=== PATIENT | female | born 1940 | race Caucasian/White ===

== ENCOUNTER 2019-04-18 05:38 | Day surgery (SDC) | payer MEDICARE, OTHER ==
[2019-04-16 12:50] LABS: BASOPHILS % (AUTO) 0.4 % (0-1); EOSINOPHILS # (AUTO) 0.2 X10'3 (0-0.9); EOSINOPHILS % (AUTO) 3.7 % (0-6); HEMATOCRIT 43.7 % (35.0-45.0); HEMOGLOBIN 14.3 g/dl (12.0-16.0); LYMPHOCYTES # (AUTO) 1.3 X10'3 (1.1-4.8); MEAN CORPUSCULAR HEMOGLOBIN 28.6 PG (27.0-31.0); MEAN CORPUSCULAR HGB CONC 32.8 g/dL (33.0-36.5); MEAN CORPUSCULAR VOLUME 87.2 FL (78-98); MEAN PLATELET VOLUME 8.4 FL (7.4-10.4); MONOCYTES # (AUTO) 0.5 X10'3 (0-0.9); MONOCYTES % (AUTO) 8.1 % (2-12); NEUTROPHILS % (AUTO) 66.8 % (42-75); PLATELET COUNT 345 X10'3 (140-440); RED BLOOD COUNT 5.02 X10'6 (4.20-5.60); RED CELL DISTRIBUTION WIDTH 16.3 % (11.5-14.5)
[2019-04-16 13:01] LABS: PARTIAL THROMBOPLASTIN TIME 31 SECONDS (22-32)
[2019-04-16 13:08] LABS: ALANINE AMINOTRANSFERASE 20 U/L (12-78); ALBUMIN 3.9 G/DL (3.4-5.0); ALKALINE PHOSPHATASE 78 IU/L (46-116); ANION GAP 10 (8-16); ASPARTATE AMINO TRANSFERASE 15 U/L (10-37); BILIRUBIN,TOTAL 0.4 MG/DL (0.1-1.0); BLOOD UREA NITROGEN 20 MG/DL (7-18); BUN/CREATININE RATIO 22.2 (6.6-38.0); CALCIUM 9.5 MG/DL (8.5-10.1); CHLORIDE 106 MMOL/L (99-107); GLUCOSE 102 MG/DL (70-104); POTASSIUM 3.9 MMOL/L (3.5-5.1); SODIUM 144 MMOL/L (135-145); TOTAL CARBON DIOXIDE 28.2 MMOL/L (24-32); TOTAL PROTEIN 7.9 G/DL (6.4-8.2); eGFR 61 ML/MIN
[~2019-04-18] VITALS: Ht 157.5 cm; Wt 66.5 kg
[2019-04-18] VITALS (15 sets, daily range): BP systolic 75–153; BP diastolic 46–84
[2019-04-18] MEDS ORDERED: diphenhydrAMINE 25mg capsule PO PRN (06:15)
[2019-04-18] MEDS ORDERED: nitroGLYCERIN 0.4mg SUBLingual tab SL PRN (06:15)
[2019-04-18] MEDS ORDERED: LORazepam 0.5 MG tablet PO PRN (06:15)
[2019-04-18] MEDS ORDERED: CALC-336 PO (06:35)
[2019-04-18] MEDS ORDERED: AMLO10TA PO (06:35)
[2019-04-18] MEDS ORDERED: ASPI-611 PO (06:35)
[2019-04-18] MEDS ORDERED: CLOP75TA33 PO (06:35)
[2019-04-18] MEDS ORDERED: LOVA20TA2 PO (06:35)
[2019-04-18] MEDS ORDERED: midazolam 2 mg/2 ml injection ONE (07:52)
[2019-04-18] MEDS ORDERED: iohexol 350MG/ML 100ml bottle IV ONE (07:52)
[2019-04-18] MEDS ORDERED: fentaNYL/PF 50MCG/1 ML 2ML syringe ONE (07:52)
[2019-04-18] MEDS ORDERED: heparin 1,000 UNITS/NS 500ml 500 ML ONE (07:52)
[2019-04-18] MEDS ORDERED: iohexol 350 MG/ML 50ML vial IV ONE ×2 (07:52→09:27)
[2019-04-18] MEDS ORDERED: LIDOcaine 1% (10mg/ml)w/preservative injection 20ml MDV ONE (07:52)
[2019-04-18] MEDS: normal saline 1,000 ML IV SCH ×2 (07:59→12:05)
[2019-04-18] MEDS ORDERED: pneumococcal 23-VAL P-sac vacc 25 mcg/0.5ml vial IMVAC ONE (09:00)
[2019-04-18] MEDS ORDERED: HYDROcodone/acetaminophen 5mg/325mg tablet PO PRN (10:05)
[2019-04-18] MEDS ORDERED: ondansetron/PF 4mg/2ml inj IV PRN (10:05)
[2019-04-18] MEDS ORDERED: OXAZEpam 15mg capsule PO PRN (10:05)
[2019-04-18] MEDS ORDERED: HYDROcodone/acetaminophen 10/325mg tab PO PRN (10:05)
[2019-04-18] MEDS ORDERED: proCHLORperazine 10 MG/2 ml inj IV PRN (10:05)
--- NOTE | 2019-04-18 10:40 | NUR ---
administering 250ml NS bolus, vs charted. pt denies sob, denies cp. will continue to monitor
--- NOTE | 2019-04-18 10:55 | NUR ---
administered 250ml bolus per protocol. vs charted. pt tolerated well. will continue to monitor
[2019-05-03] MEDS ORDERED: LOVA40TA2 PO (16:32)
[2019-05-03] MEDS ORDERED: METO25TA6 PO (16:32)
[2019-05-04] MEDS ORDERED: CALC1TAB2 PO (10:20)
== END 2019-04-18 17:30 | disposition home or self-care (01) ==
LOC: SSTAY O 05:38
PROVIDERS: ATTEND Internal Medicine Cardiovascular Disease
DX: R94.39 Abnormal result of other cardiovascular function study (principal); I25.119 Atherosclerotic heart disease of native coronary artery with unspecified angina pectoris; I70.213 Atherosclerosis of native arteries of extremities with intermittent claudication, bilateral legs; I65.22 Occlusion and stenosis of left carotid artery; I77.1 Stricture of artery; I10 Essential (primary) hypertension; E78.5 Hyperlipidemia, unspecified; J44.9 Chronic obstructive pulmonary disease, unspecified; Z79.01 Long term (current) use of anticoagulants; Z86.73 Personal history of transient ischemic attack (TIA), and cerebral infarction without residual deficits
CPT/HCPCS: 36222; 36415; 71046; 75625; 80053; 85025; 85610; 85730; 93005; 93458; 99152; 99153; C1769; J1644; J2001; J2250; J2405; J3010; J7030; Q0163; Q9967; A6258; C1760

== ENCOUNTER 2019-05-07 05:16 | Inpatient (IN) | payer MEDICARE, OTHER ==
[2019-05-03 14:28] LABS: CLARITY,URINE CLEAR (Clear); COLOR,URINE STRAW (Yellow); GLUCOSE, URINE NEGATIVE (Neg); KETONES,URINE NEGATIVE (Neg); LEUKOCYTE ESTERASE ,URINE NEGATIVE (Neg); NITRITES, URINE NEGATIVE (Neg); OCCULT BLOOD,URINE NEGATIVE (Neg); PROTEIN,URINE NEGATIVE (Neg); UROBILINOGEN,URINE 0.2 E.U/dL (0.2-1.0)
[2019-05-03 14:32] LABS: UA COLLECTION TYPE CLN CATCH MIDSTREAM
[2019-05-03 14:51] LABS: ABG BASE EXCESS 1.9 mmol/L (-2.0-3.0); ABG HCO3 26.2 mmol/L (22.0-26.0); ABG OXYGEN SATURATION 94.7 % (95-98); ABG PCO2 (T) 40.1 mmHg (35.0-45.0); ABG PH (T) 7.433 (7.350-7.450); ABG PO2 (T) 70.4 mmHg (83-108); ALLEN'S TEST Positive; FCOHb 0.7 % (0.5-1.5); FMetHb 0.1 % (0.3-1.12); FO2Hb 93.9 % (94-100); TOTAL HEMOGLOBIN 15.6 G/dl (12.0-16.0)
[2019-05-03 15:35] LABS: BASOPHILS # (AUTO) 0.1 X10'3 (0-0.2); BASOPHILS % (AUTO) 0.8 % (0-1); EOSINOPHILS # (AUTO) 0.2 X10'3 (0-0.9); EOSINOPHILS % (AUTO) 3.6 % (0-6); LYMPHOCYTES # (AUTO) 1.2 X10'3 (1.1-4.8); LYMPHOCYTES % (AUTO) 17.9 % (21-51); MEAN CORPUSCULAR HEMOGLOBIN 28.3 PG (27.0-31.0); MEAN CORPUSCULAR HGB CONC 33.1 g/dL (33.0-36.5); MEAN CORPUSCULAR VOLUME 85.5 FL (78-98); MONOCYTES # (AUTO) 0.5 X10'3 (0-0.9); MONOCYTES % (AUTO) 7.3 % (2-12); NEUTROPHILS # (AUTO) 4.7 X10'3 (1.8-7.7); NEUTROPHILS % (AUTO) 70.4 % (42-75); PRE OP HEMATOCRIT 44.5 % (35.0-45.0); PRE OP HEMOGLOBIN 14.7 g/dL (12.0-16.0); PRE OP PLATELET COUNT 324 X10'3 (140-440); RED CELL DISTRIBUTION WIDTH 15.7 % (11.5-14.5)
[2019-05-03 15:48] LABS: PRE OP PROTIME 10.1 SECONDS (9.0-12.0)
[2019-05-03 15:50] LABS: ALKALINE PHOSPHATASE 78 IU/L (46-116); BLOOD UREA NITROGEN 21 MG/DL (7-18); BUN/CREATININE RATIO 24.1 (6.6-38.0); CALCIUM 10.1 MG/DL (8.5-10.1); CHLORIDE 105 MMOL/L (99-107); CREATININE 0.87 MG/DL (0.40-0.90); PRE OP ALT 18 U/L (30-65); PRE OP ANION GAP 9 (8-16); PRE OP AST 16 U/L (10-37); PRE OP BILIRUB, TOTAL 0.4 MG/DL (0.0-1.0); PRE OP GLUCOSE 95 MG/DL (70-104); PRE OP POTASSIUM 4.1 MMOL/L (3.4-5.1); PRE OP SODIUM 143 MMOL/L (135-145); TOTAL CARBON DIOXIDE 29.3 MMOL/L (24-32); eGFR 63 ML/MIN
[2019-05-03 16:06] LABS: HEMOGLOBIN A1C 5.5 % (4.5-6.2)
[~2019-05-07] VITALS: Ht 157.5 cm; Wt 67.8 kg
[2019-05-07] VITALS (13 sets, daily range): BP systolic 96–146; BP diastolic 39–72
[~2019-05-07 05:16] MED LIST: AMLO10TA PO; ASPI-611 PO; CALC1TAB2 PO; CLOP75TA33 PO; LOVA40TA2 PO; METO25TA6 PO; ROPIVAcaine 0.5% (5mg/ml) 30ml vial ONE; ringers solution, lacted 1,000 ML IV SCH
[2019-05-07] MEDS ORDERED: mupirocin 2% nasal ointment 1gm UD NS ONE (05:30)
[2019-05-07] MEDS ORDERED: VANCOMYCIN INJ 1000 MG in NORMAL SALINE 250ml IV.SOLN IV ONE (05:30)
[2019-05-07] MEDS ORDERED: famotidine 20mg tablet PO ONE (05:30)
[2019-05-07] MEDS ORDERED: gabapentin 400mg capsule PO ONE (05:30)
[2019-05-07] MEDS ORDERED: cefazolin/dext.iso 2gm/100 ML IV ONE (05:30)
[2019-05-07] MEDS ORDERED: MALTODEXTRIN/FRUCTOSE 0.68 KCAL/ML LIQUID 296ML BOTTLE PO ONE (05:30)
[2019-05-07] MEDS ORDERED: LORazepam 2 mg/ml vial IV PRN (06:30)
[2019-05-07] MEDS: metoprolol tartrate 25mg tablet PO SCH ×3 (06:33→20:00)
[2019-05-07] MEDS ORDERED: papaverine 30 mg/ml 2ml inj. IA ONE (07:00)
[2019-05-07] MEDS ORDERED: heparin 10,000 units/1 ML INJ IR ONE (07:00)
[2019-05-07] MEDS ORDERED: sevoflurane 250ml liquid IH ONE (07:01)
[2019-05-07] MEDS ORDERED: nitroGLYCERIN in D5W 50mg/250ml (Tridil) infusion IV ONE (07:01)
[2019-05-07] MEDS ORDERED: DOPamine/D5W 400mg/250ml bag IV ONE (07:01)
[2019-05-07] MEDS ORDERED: SUFENTANIL CITRATE 50 MCG/ML 2ml ampule IV ONE (07:01)
[2019-05-07] MEDS ORDERED: INSULIN R 100 UNIT in NS 100ML (1 UNIT/1 ML) BAG IV ONE (07:01)
[2019-05-07] MEDS ORDERED: protamine sulf. 10mg/ml inj. IV ONE (07:01)
[2019-05-07] MEDS ORDERED: aminocaproic acid 250 MG/1 ML inj. ONE ×2 (07:01→08:00)
[2019-05-07] MEDS ORDERED: midazolam 2 mg/2 ml injection ONE ×2 (07:02)
[2019-05-07] MEDS ORDERED: propofol inj 20 ML IV ONE (07:02)
[2019-05-07] MEDS ORDERED: rocuronium 10mg/ml inj IV ONE ×2 (07:07)
[2019-05-07] MEDS ORDERED: sodium bicarbonate (8.4%) 1 mEq/ml syringe ONE (08:00)
[2019-05-07] MEDS ORDERED: calcium chloride 100 MG/1 ML inj IV ONE (08:00)
[2019-05-07] MEDS ORDERED: heparin 10,000 units/1 ML INJ ONE ×2 (08:00)
[2019-05-07] MEDS ORDERED: MAGNESIUM SULFATE 4 MEQ/ML (5gm/10ml) injection ONE (08:00)
[2019-05-07] MEDS ORDERED: methylPREDNISolone sod. succ. 500mg inj ONE (08:00)
[2019-05-07] MEDS ORDERED: albumin (human) 25% 100 ML IV solution IV ONE (08:00)
[2019-05-07] MEDS ORDERED: phenylephrine 10mg/ml inj. ONE (08:00)
[2019-05-07] MEDS ORDERED: LIDOcaine 2% (20 mg/ml) 5ml cardiac syringe ONE (08:00)
[2019-05-07] MEDS ORDERED: heparin 1,000 units/ml 10ml inj ONE (08:00)
[2019-05-07] MEDS ORDERED: papaverine 30 mg/ml 2ml inj. ONE (08:00)
[2019-05-07] MEDS ORDERED: potassium Cl 2 mEq/ml inj IV ONE (08:00)
[2019-05-07 08:40] LABS: ACT @ 1.70 U 247 SEC (193-297); ACT @ 2.84 U 326 SEC (260-420); BASELINE ACT 117 SEC (101-148); PATIENT WEIGHT 68.0k KG
[2019-05-07 09:30] LABS: ABG BASE EXCESS VENOUS 3.3 mmol/L; ABG HCO3 VENOUS 27.8 mmol/L; ABG PO2 VENOUS 54.5 mmHg; CL (ABG) 104 mmol/L (99-107); FCOHb VENOUS 0.3 %; FHHb VENOUS 10.5 %; FMetHb VENOUS 0.6 %; FO2Hb VENOUS 88.6 %; GLUCOSE (ABG) 124 mg/dl (70-104); IONIZED CA (ABG) 1.04 mmol/L (1.03-1.32); K (ABG) 4.6 mmol/L (3.3-5.1); NA (ABG) 135 mmol/L (135-145); TOTAL HEMOGLOBIN 9.7 G/dl (12.0-16.0)
[2019-05-07 10:06] LABS: ABG BASE EXCESS 0.6 mmol/L (-2.0-3.0); ABG HCO3 25.5 mmol/L (22.0-26.0); ABG OXYGEN SATURATION 98.9 % (95-98); ABG PCO2 42.3 mmHg (35.0-45.0); ABG PH 7.398 (7.350-7.450); ABG PO2 269.5 mmHg (60.0-100.0); CL (ABG) 104 mmol/L (99-107); FCOHb 0.2 % (0.5-1.5); FMetHb 0.7 % (0.3-1.12); GLUCOSE (ABG) 158 mg/dl (70-104); IONIZED CA (ABG) 1.09 mmol/L (1.03-1.32); K (ABG) 4.9 mmol/L (3.3-5.1); NA (ABG) 137 mmol/L (135-145); TOTAL HEMOGLOBIN 9.8 G/dl (12.0-16.0)
[2019-05-07 10:45] LABS: ABG BASE EXCESS -0.2 mmol/L (-2.0-3.0); ABG HCO3 23.4 mmol/L (22.0-26.0); ABG PCO2 35.2 mmHg (35.0-45.0); ABG PO2 324.4 mmHg (60.0-100.0); CL (ABG) 101 mmol/L (99-107); GLUCOSE (ABG) 151 mg/dl (70-104); IONIZED CA (ABG) 1.45 mmol/L (1.03-1.32); K (ABG) 4.4 mmol/L (3.3-5.1); NA (ABG) 132 mmol/L (135-145)
[2019-05-07 11:15] LABS: ACTIVATED CLOTTING TIME 90 SEC (101-148)
[2019-05-07] MEDS ORDERED: acetaminophen 1,000mg/100ml IV 100 ML IV ONE (11:45)
[2019-05-07] MEDS ORDERED: nitroGLYCERIN-Tridil 50MG/D5W 250 ML IV PRN (12:01)
[2019-05-07] MEDS ORDERED: niCARDipine-NS 40mg/200ml IVPB 200 ML IV PRN (12:01)
[2019-05-07] MEDS ORDERED: DOPamine 400mg/D5W 250ml 250 ML IV PRN (12:01)
[2019-05-07] MEDS ORDERED: dextrose 50%-water 50ml dispensing syringe IV PRN (12:05)
[2019-05-07] MEDS ORDERED: insulin regular, human inj. 100 UNITS in normal saline 100ml IV soln 100 ML IV SCH ×2 (12:05)
[2019-05-07] MEDS ORDERED: metoclopramide 5 mg/ml inj IV PRN (12:05)
[2019-05-07] MEDS ORDERED: ondansetron/PF 4mg/2ml inj IV PRN (12:05)
[2019-05-07] MEDS ORDERED: pantoprazole 40 MG vial IV ONE (12:05)
[2019-05-07] MEDS ORDERED: magnesium hydroxide 30ml (MOM) UD suspension PO PRN (12:05)
[2019-05-07] MEDS ORDERED: HYDROcodone/acetaminophen 10/325mg tab PO PRN ×2 (12:05)
[2019-05-07] MEDS ORDERED: normal saline 250ml IV soln 250 ML IV PRN (12:05)
[2019-05-07] MEDS ORDERED: Neutra Phos packet PO PRN (12:05)
[2019-05-07] MEDS ORDERED: potassium Cl 20 mEq SR tablet PO PRN (12:05)
[2019-05-07] MEDS ORDERED: morphine 4 MG/ML inj SYRINge IV PRN ×2 (12:05)
[2019-05-07] MEDS ORDERED: acetaminophen 325mg tablet PO PRN (12:05)
[2019-05-07] MEDS ORDERED: magnesium 4gm in 100ml NS 100 ML IV PRN (12:05)
[2019-05-07] MEDS ORDERED: sodium phosphate inj. 15 MMOL in dextrose 5%-water 150 ML IV PRN (12:05)
[2019-05-07] MEDS ORDERED: sodium phosphate inj. 30 MMOL in dextrose 5%-water 250 ML IV PRN (12:05)
--- NOTE | 2019-05-07 12:14 | NUR ---
Received to room 2039, accompanied by MDs and surgical crew. Placed on ventilator, to cardiac cath lab manager, arterial line and PA line pressure monitored. Chest tubes to suction at 20 cm. Peres cath to gravity drainage. Dressings are dry and intact. See assessment record. All vasoactive drugs are infusing via central line.
[2019-05-07 12:25] LABS: ABG BASE EXCESS -3.2 mmol/L (-2.0-3.0); ABG HCO3 22.2 mmol/L (22.0-26.0); ABG OXYGEN SATURATION 95.9 % (95-98); ABG PCO2 (T) 41.1 mmHg (35.0-45.0); ABG PH (T) 7.351 (7.350-7.450); ABG PO2 (T) 85.6 mmHg (83-108); FLOW 40 L/min; FMetHb 0.3 % (0.3-1.12); FO2Hb 95.6 % (94-100); MINUTE VOLUME 4 L/min; PEEP 5 cm H2O; RESPIRATORY RATE 12 b/min; RESPIRATORY RATE (OBSERVED) 12 b/min; TIDAL VOLUME 500 mL; TOTAL HEMOGLOBIN 13.2 G/dl (12.0-16.0)
[2019-05-07 12:32] LABS: BASOPHILS % (AUTO) 0.4 % (0-1); EOSINOPHILS # (AUTO) 0.1 X10'3 (0-0.9); EOSINOPHILS % (AUTO) 0.6 % (0-6); HEMOGLOBIN 12.3 g/dl (12.0-16.0); LYMPHOCYTES # (AUTO) 0.7 X10'3 (1.1-4.8); LYMPHOCYTES % (AUTO) 5.6 % (21-51); MEAN CORPUSCULAR HEMOGLOBIN 28.6 PG (27.0-31.0); MEAN CORPUSCULAR HGB CONC 33.3 g/dL (33.0-36.5); MEAN CORPUSCULAR VOLUME 85.9 FL (78-98); MONOCYTES # (AUTO) 0.4 X10'3 (0-0.9); MONOCYTES % (AUTO) 3.5 % (2-12); NEUTROPHILS # (AUTO) 10.9 X10'3 (1.8-7.7); NEUTROPHILS % (AUTO) 89.9 % (42-75); PLATELET COUNT 159 X10'3 (140-440); RED CELL DISTRIBUTION WIDTH 15.2 % (11.5-14.5); WHITE BLOOD COUNT 12.2 X10'3 (4.5-11.0)
[2019-05-07 12:43] LABS: PARTIAL THROMBOPLASTIN TIME 26 SECONDS (22-32)
[2019-05-07 12:45] LABS: ALANINE AMINOTRANSFERASE 204 U/L (12-78); ALBUMIN/GLOBULIN RATIO 1.1 (1.1-1.5); ALKALINE PHOSPHATASE 60 IU/L (46-116); ANION GAP 11 (8-16); ASPARTATE AMINO TRANSFERASE 352 U/L (10-37); BLOOD UREA NITROGEN 18 MG/DL (7-18); BUN/CREATININE RATIO 16.8 (6.6-38.0); CALCIUM 10.2 MG/DL (8.5-10.1); CHLORIDE 111 MMOL/L (99-107); CREATININE 1.07 MG/DL (0.40-0.90); GLUCOSE 132 MG/DL (70-104); MAGNESIUM 3.7 MG/DL (1.5-2.4); POTASSIUM 3.5 MMOL/L (3.5-5.1); SODIUM 146 MMOL/L (135-145); TOTAL CARBON DIOXIDE 23.8 MMOL/L (24-32); TOTAL PROTEIN 5.8 G/DL (6.4-8.2); eGFR 50 ML/MIN
[2019-05-07] MEDS: gabapentin 300mg capsule PO SCH ×2 (12:56→21:26)
[2019-05-07] MEDS: insulin Lispro (HumaLOG) vial - multi-dose SQ SCH ×2 (13:00→17:36)
[2019-05-07] MEDS: sodium chloride 0.45% 1,000 ML IV SCH (13:19)
[2019-05-07] MEDS: albumin (Human) 5% 250ml 250 ML IV PRN ×3 (13:25→15:57)
[2019-05-07] MEDS: insulin regular, human 100 UNIT in normal saline 100ml IV soln 99 ML IV SCH ×2 (14:17)
[2019-05-07] MEDS: potassium Cl 20mEq/100mL bag 100 ML IV PRN ×2 (14:33→15:20)
[2019-05-07] MEDS: ceFAZolin 1GM/D5W- ADD-VANTAGE 50 ML IV SCH (16:10)
[2019-05-07 18:20] LABS: BASOPHILS % (AUTO) 0.4 % (0-1); EOSINOPHILS % (AUTO) 0 % (0-6); HEMATOCRIT 31.4 % (35.0-45.0); HEMOGLOBIN 10.5 g/dl (12.0-16.0); LYMPHOCYTES # (AUTO) 0.5 X10'3 (1.1-4.8); LYMPHOCYTES % (AUTO) 4.3 % (21-51); MEAN CORPUSCULAR HEMOGLOBIN 28.8 PG (27.0-31.0); MEAN CORPUSCULAR HGB CONC 33.4 g/dL (33.0-36.5); MEAN CORPUSCULAR VOLUME 86.2 FL (78-98); MEAN PLATELET VOLUME 8.3 FL (7.4-10.4); MONOCYTES # (AUTO) 0.4 X10'3 (0-0.9); MONOCYTES % (AUTO) 3.2 % (2-12); NEUTROPHILS # (AUTO) 11.6 X10'3 (1.8-7.7); NEUTROPHILS % (AUTO) 92.1 % (42-75); PLATELET COUNT 130 X10'3 (140-440); RED BLOOD COUNT 3.65 X10'6 (4.20-5.60); RED CELL DISTRIBUTION WIDTH 15.4 % (11.5-14.5); WHITE BLOOD COUNT 12.6 X10'3 (4.5-11.0)
--- NOTE | 2019-05-07 18:30 | NUR ---
Patient in room ICU 2039. I have received report from Luana CHA and Faustina CHA and had the opportunity to ask questions and assume patient care.
[2019-05-07 18:34] LABS: ALBUMIN 3.6 G/DL (3.4-5.0); ANION GAP 12 (8-16); BLOOD UREA NITROGEN 21 MG/DL (7-18); BUN/CREATININE RATIO 18.6 (6.6-38.0); CHLORIDE 112 MMOL/L (99-107); CREATININE 1.13 MG/DL (0.40-0.90); GLUCOSE 191 MG/DL (70-104); MAGNESIUM 2.7 MG/DL (1.5-2.4); PHOSPHORUS 3.1 MG/DL (2.3-4.5); POTASSIUM 4.5 MMOL/L (3.5-5.1); SODIUM 147 MMOL/L (135-145); TOTAL CARBON DIOXIDE 23.1 MMOL/L (24-32); eGFR 47 ML/MIN
[2019-05-07] MEDS: docusate sod 100mg capsule PO SCH (20:00)
[2019-05-07 20:11] LABS: ABG BASE EXCESS -5.6 mmol/L (-2.0-3.0); ABG HCO3 19.1 mmol/L (22.0-26.0); ABG PCO2 (T) 35.7 mmHg (35.0-45.0); ABG PH (T) 7.349 (7.350-7.450); ABG PO2 (T) 68.7 mmHg (83-108); FCOHb 0.3 % (0.5-1.5); FMetHb 0.4 % (0.3-1.12); FO2Hb 91.4 % (94-100); MINUTE VOLUME 10 L/min; PATIENT TEMPERATURE 37.7; PEEP 5 cm H2O; TOTAL HEMOGLOBIN 11.4 G/dl (12.0-16.0)
[2019-05-07] MEDS: vancomycin/NS 1 GM ADD-VANTAGE 250 ML IV SCH (20:16)
--- NOTE | 2019-05-07 20:20 | NUR ---
Patient extubated at this time. ABG within normal limits, passed weaning parameters, able to follow commands. Once extubated, 6 L nasal cannula placed to maintain O2 above 93% per MD order. Patient tolerating well, will continue to monitor.
[2019-05-07] MEDS: mupirocin 2% nasal ointment 1gm UD NS SCH (21:26)
[2019-05-08] VITALS (24 sets, daily range): BP systolic 101–140; BP diastolic 41–72
[2019-05-08] MEDS: ceFAZolin 1GM/D5W- ADD-VANTAGE 50 ML IV SCH ×3 (00:09→16:13)
[2019-05-08 02:34] LABS: BASOPHILS % (AUTO) 0.1 % (0-1); EOSINOPHILS % (AUTO) 0 % (0-6); HEMATOCRIT 30.6 % (35.0-45.0); HEMOGLOBIN 10.3 g/dl (12.0-16.0); LYMPHOCYTES # (AUTO) 0.5 X10'3 (1.1-4.8); LYMPHOCYTES % (AUTO) 3.2 % (21-51); MEAN CORPUSCULAR HEMOGLOBIN 29.1 PG (27.0-31.0); MEAN CORPUSCULAR HGB CONC 33.5 g/dL (33.0-36.5); MEAN CORPUSCULAR VOLUME 86.6 FL (78-98); MEAN PLATELET VOLUME 8.8 FL (7.4-10.4); MONOCYTES # (AUTO) 0.6 X10'3 (0-0.9); MONOCYTES % (AUTO) 4.3 % (2-12); NEUTROPHILS # (AUTO) 13.3 X10'3 (1.8-7.7); NEUTROPHILS % (AUTO) 92.4 % (42-75); PLATELET COUNT 125 X10'3 (140-440); RED BLOOD COUNT 3.53 X10'6 (4.20-5.60); RED CELL DISTRIBUTION WIDTH 15.4 % (11.5-14.5); WHITE BLOOD COUNT 14.4 X10'3 (4.5-11.0)
[2019-05-08 02:41] LABS: PARTIAL THROMBOPLASTIN TIME 25 SECONDS (22-32)
[2019-05-08 02:47] LABS: ALANINE AMINOTRANSFERASE 172 U/L (12-78); ALBUMIN 3.5 G/DL (3.4-5.0); ALBUMIN/GLOBULIN RATIO 1.4 (1.1-1.5); ALKALINE PHOSPHATASE 43 IU/L (46-116); ANION GAP 11 (8-16); ASPARTATE AMINO TRANSFERASE 191 U/L (10-37); BILIRUBIN,TOTAL 0.6 MG/DL (0.1-1.0); BLOOD UREA NITROGEN 20 MG/DL (7-18); BUN/CREATININE RATIO 19.2 (6.6-38.0); CALCIUM 8.4 MG/DL (8.5-10.1); CHLORIDE 113 MMOL/L (99-107); CREATININE 1.04 MG/DL (0.40-0.90); GLUCOSE 132 MG/DL (70-104); MAGNESIUM 2.3 MG/DL (1.5-2.4); PHOSPHORUS 3.7 MG/DL (2.3-4.5); POTASSIUM 3.7 MMOL/L (3.5-5.1); SODIUM 149 MMOL/L (135-145); TOTAL CARBON DIOXIDE 25.2 MMOL/L (24-32); eGFR 52 ML/MIN
[2019-05-08] MEDS: potassium Cl 20mEq/100mL bag 100 ML IV PRN ×3 (03:14→05:33)
[2019-05-08] MEDS: insulin regular, human 100 UNIT in normal saline 100ml IV soln 99 ML IV SCH ×2 (05:30)
--- NOTE | 2019-05-08 06:25 | NUR ---
Problems reprioritized. Patient report given, questions answered & plan of care reviewed with FaustinaRN and STARLA Christian.
[2019-05-08] MEDS: magnesium 2GM in 50ml NS 50 ML IV PRN (06:42)
[2019-05-08] MEDS: gabapentin 300mg capsule PO SCH ×3 (07:44→20:14)
[2019-05-08] MEDS: mupirocin 2% nasal ointment 1gm UD NS SCH ×2 (07:45→20:13)
[2019-05-08] MEDS: docusate sod 100mg capsule PO SCH ×2 (07:45→20:14)
[2019-05-08] MEDS: atorvastatin 10mg tablet PO SCH (07:45)
[2019-05-08] MEDS ORDERED: aspirin 325mg tablet, delayed-release (Ecotrin) PO SCH (08:00)
[2019-05-08] MEDS: metoprolol tartrate 25mg tablet PO SCH (08:00)
[2019-05-08] MEDS: metoprolol tartrate 12.5mg (1/2 tablet) PO SCH ×2 (08:00→20:13)
[2019-05-08] MEDS: aspirin 81mg tablet.DR PO SCH (08:03)
[2019-05-08] MEDS: vancomycin/NS 1 GM ADD-VANTAGE 250 ML IV SCH ×2 (08:27→20:13)
[2019-05-08] MEDS: insulin Lispro (HumaLOG) vial - multi-dose SQ SCH ×3 (09:00→17:47)
--- NOTE | 2019-05-08 13:35 | NUR ---
1300 Gabapentin held due to excessive sleepiness.
--- NOTE | 2019-05-08 17:14 | NUR ---
Pt. has two visitors at bedside. Denies need for pain med at this time. GERMANIA wrap/dressing taken off left leg. SCDs on.
--- NOTE | 2019-05-08 17:39 | NUR ---
Pacer wires isolated.
--- NOTE | 2019-05-08 18:21 | NUR ---
Problems reprioritized. Patient report given, questions answered & plan of care reviewed with Rajiv Marinelli
--- NOTE | 2019-05-08 18:32 | NUR ---
Patient in room ICU 2039. I have received report from Faustina Zhou RN and had the opportunity to ask questions and assume patient care.
--- NOTE | 2019-05-08 19:00 | NUR ---
INSULIN DRIP STOPPED per conversation with charge nurse insulin drip was stopped due to pt's condition. pt is not a diabetic and blood sugars have been within normal ranges. pt was receiving 1.6 units/hr and due to pt not being diabetic and time out from surgery we will be checking on a ACHS schedule. will next check at bedtime and adjust on a SQ schedule as needed.
--- NOTE | 2019-05-08 19:00 | NUR ---
chest tube drainage amount decrease is due to container spilling from first chamber to the next. the second chamber is at 500 but the first is missing 10ml from the top thus 490 is the actual amount out. marked fluid level in both chambers to establish baseline for start of shift, will continue to monitor.
--- NOTE | 2019-05-08 23:39 | NUR ---
PTT in therapeutic range heparin is currently running at 1400 u/hr and labs drawn at 2254 were 46 PTT. will continue at current rate and place order for re-draw per protocol for 6 hours. Addendum: 05/08/19 at 2347 by Norbert Elkins RN DISREGARD NOTE: documented on wrong pt
[2019-05-09] VITALS (25 sets, daily range): BP systolic 84–154; BP diastolic 5–83
[2019-05-09] MEDS: ceFAZolin 1GM/D5W- ADD-VANTAGE 50 ML IV SCH (00:10)
[2019-05-09 04:16] LABS: BASOPHILS % (AUTO) 0.3 % (0-1); EOSINOPHILS % (AUTO) 0.1 % (0-6); HEMOGLOBIN 9.9 g/dl (12.0-16.0); LYMPHOCYTES # (AUTO) 0.7 X10'3 (1.1-4.8); LYMPHOCYTES % (AUTO) 4.7 % (21-51); MEAN CORPUSCULAR HEMOGLOBIN 28.5 PG (27.0-31.0); MEAN CORPUSCULAR HGB CONC 33.1 g/dL (33.0-36.5); MEAN CORPUSCULAR VOLUME 86.3 FL (78-98); MONOCYTES % (AUTO) 6.5 % (2-12); NEUTROPHILS # (AUTO) 13.4 X10'3 (1.8-7.7); NEUTROPHILS % (AUTO) 88.4 % (42-75); PLATELET COUNT 117 X10'3 (140-440); RED BLOOD COUNT 3.48 X10'6 (4.20-5.60); RED CELL DISTRIBUTION WIDTH 15.8 % (11.5-14.5); WHITE BLOOD COUNT 15.2 X10'3 (4.5-11.0)
[2019-05-09 04:25] LABS: ANION GAP 7 (8-16); BLOOD UREA NITROGEN 26 MG/DL (7-18); CALCIUM 8.1 MG/DL (8.5-10.1); CHLORIDE 107 MMOL/L (99-107); CREATININE 0.84 MG/DL (0.40-0.90); GLUCOSE 127 MG/DL (70-104); PHOSPHORUS 2.3 MG/DL (2.3-4.5); POTASSIUM 4.1 MMOL/L (3.5-5.1); SODIUM 141 MMOL/L (135-145); eGFR 66 ML/MIN
[2019-05-09] MEDS: insulin regular, human 100 UNIT in normal saline 100ml IV soln 99 ML IV SCH ×2 (05:30)
--- NOTE | 2019-05-09 06:00 | NUR ---
Chest tube drain amount pt moved from bed to chair and when she moved the CT had increased output,additionally this was due to build up in the tube itself.
--- NOTE | 2019-05-09 06:31 | NUR ---
Problems reprioritized. Patient report given, questions answered & plan of care reviewed with Lisa and Stephanie RNs.
[2019-05-09] MEDS ORDERED: furosemide 40mg/4ml inj IV ONE (07:50)
[2019-05-09] MEDS ORDERED: acetaminophen 325mg tablet PO PRN (07:55)
[2019-05-09] MEDS: mupirocin 2% nasal ointment 1gm UD NS SCH ×2 (08:39→20:03)
[2019-05-09] MEDS: atorvastatin 10mg tablet PO SCH (08:39)
[2019-05-09] MEDS: metoprolol tartrate 12.5mg (1/2 tablet) PO SCH ×2 (08:39→20:03)
[2019-05-09] MEDS: aspirin 81mg tablet.DR PO SCH (08:39)
[2019-05-09] MEDS: clopidogrel 75mg tablet PO SCH (08:39)
[2019-05-09] MEDS: docusate sod 100mg capsule PO SCH ×2 (08:39→20:03)
[2019-05-09] MEDS: gabapentin 300mg capsule PO SCH (08:39)
[2019-05-09] MEDS: pantoprazole 40mg Tablet.DR PO SCH (08:41)
[2019-05-09] MEDS: insulin Lispro (HumaLOG) vial - multi-dose SQ SCH ×3 (09:00→18:00)
[2019-05-09] MEDS: sodium chloride 0.45% 1,000 ML IV SCH (12:01)
--- NOTE | 2019-05-09 18:30 | NUR ---
Patient in room ICU 2039. I have received report from Anahi CHA and had the opportunity to ask questions and assume patient care.
[2019-05-10] VITALS (16 sets, daily range): BP systolic 90–144; BP diastolic 49–99
[2019-05-10 03:15] LABS: BASOPHILS % (AUTO) 0.4 % (0-1); EOSINOPHILS # (AUTO) 0.1 X10'3 (0-0.9); EOSINOPHILS % (AUTO) 1.3 % (0-6); HEMATOCRIT 28.4 % (35.0-45.0); HEMOGLOBIN 9.5 g/dl (12.0-16.0); LYMPHOCYTES # (AUTO) 0.7 X10'3 (1.1-4.8); MEAN CORPUSCULAR HEMOGLOBIN 29.1 PG (27.0-31.0); MEAN CORPUSCULAR HGB CONC 33.3 g/dL (33.0-36.5); MEAN CORPUSCULAR VOLUME 87.4 FL (78-98); MONOCYTES # (AUTO) 0.8 X10'3 (0-0.9); MONOCYTES % (AUTO) 8.1 % (2-12); NEUTROPHILS # (AUTO) 8.3 X10'3 (1.8-7.7); NEUTROPHILS % (AUTO) 83.2 % (42-75); PLATELET COUNT 116 X10'3 (140-440); RED BLOOD COUNT 3.25 X10'6 (4.20-5.60); RED CELL DISTRIBUTION WIDTH 15.6 % (11.5-14.5)
[2019-05-10 03:56] LABS: ALBUMIN 2.7 G/DL (3.4-5.0); ANION GAP 8 (8-16); BLOOD UREA NITROGEN 22 MG/DL (7-18); BUN/CREATININE RATIO 27.8 (6.6-38.0); CALCIUM 8.6 MG/DL (8.5-10.1); CHLORIDE 108 MMOL/L (99-107); CREATININE 0.79 MG/DL (0.40-0.90); GLUCOSE 100 MG/DL (70-104); MAGNESIUM 2.2 MG/DL (1.5-2.4); PHOSPHORUS 2.1 MG/DL (2.3-4.5); POTASSIUM 3.8 MMOL/L (3.5-5.1); SODIUM 143 MMOL/L (135-145); TOTAL CARBON DIOXIDE 27.5 MMOL/L (24-32); eGFR 71 ML/MIN
[2019-05-10] MEDS: potassium Cl 20mEq/100mL bag 100 ML IV PRN ×2 (04:13→05:09)
[2019-05-10] MEDS: magnesium 2GM in 50ml NS 50 ML IV PRN (04:14)
[2019-05-10] MEDS: insulin regular, human 100 UNIT in normal saline 100ml IV soln 99 ML IV SCH ×2 (05:30)
--- NOTE | 2019-05-10 06:29 | NUR ---
Problems reprioritized. Patient report given, questions answered & plan of care reviewed with Rommel CHA.
--- NOTE | 2019-05-10 06:30 | NUR ---
Patient in room ICU 2039. I have received report from STARLA Wang and had the opportunity to ask questions and assume patient care.
[2019-05-10] MEDS ORDERED: potassium CL 10mEq/100ml bag 100 ML IV PRN ×2 (06:55)
[2019-05-10] MEDS ORDERED: magnesium Cl slow-release 64mg tablet PO PRN ×2 (06:55→14:05)
[2019-05-10] MEDS ORDERED: magnesium 4gm in 100ml NS 100 ML IV PRN ×2 (06:55→14:05)
[2019-05-10] MEDS ORDERED: magnesium 2GM in 50ml NS 50 ML IV PRN ×2 (06:55→14:05)
[2019-05-10] MEDS ORDERED: potassium Cl 20 mEq SR tablet PO PRN ×5 (06:55→14:30)
[2019-05-10] MEDS: clopidogrel 75mg tablet PO SCH (07:49)
[2019-05-10] MEDS: atorvastatin 10mg tablet PO SCH (07:49)
[2019-05-10] MEDS: docusate sod 100mg capsule PO SCH ×2 (07:49→20:01)
[2019-05-10] MEDS: magnesium Cl slow-release 64mg tablet PO SCH ×2 (07:49→20:01)
[2019-05-10] MEDS: potassium Cl 20 mEq SR tablet PO SCH ×2 (07:50→20:01)
[2019-05-10] MEDS: metoprolol tartrate 12.5mg (1/2 tablet) PO SCH ×2 (07:50→20:01)
[2019-05-10] MEDS: pantoprazole 40mg Tablet.DR PO SCH (07:50)
[2019-05-10] MEDS: aspirin 81mg tablet.DR PO SCH (07:50)
[2019-05-10] MEDS ORDERED: K and/or MAG REPLACEMENT MC SCH ×2 (08:00→14:00)
--- NOTE | 2019-05-10 11:40 | NUR ---
patient transferred to [facility] unit 314. placed on 4LNC, NA at bedside. patient alert and all belongings sent with patient. glasses on patient and dentures in mouth both top and bottom. friends at bedside escorted to room with patient. 3 bags of belongings present.
--- NOTE | 2019-05-10 11:40 | NUR ---
CABG consult: Pt seen by MAIA for written/verbal CABG/heart healthy eds w/ RD contact information provided. Pt reports lower appetite than normal post-op; agrees to ensure pudding w/ lunches vanilla today. Dietary notified. Will continue to monitor. Addendum: 05/10/19 at [address] Amended: Links added.
--- NOTE | 2019-05-10 12:02 | NUR ---
Patient in room ICU 2039 transferring to [facility]. I have received report from STARLA Carney and had the opportunity to ask questions and assume patient care.
--- NOTE | 2019-05-10 18:20 | NUR ---
Patient in room MED 314. I have received report from STARLA Montana and had the opportunity to ask questions and assume patient care.
--- NOTE | 2019-05-10 18:27 | NUR ---
Problems reprioritized. Patient report given, questions answered & plan of care reviewed with STARLA Saldivar
--- NOTE | 2019-05-10 18:30 | NUR ---
Student documentation: I have reviewed and agree with interventions, assessments performed and documented by MILANA Monsivais. Student Medication Administration: For this medication-pass time frame, all medication were reviewed, dispensed, administered and documented per hospital policy by IMLANA Monsivais.
[2019-05-11 02:00] VITALS: BP 134/67
[2019-05-11 06:00] VITALS: BP 153/66
[2019-05-11 06:05] LABS: BASOPHILS # (AUTO) 0.1 X10'3 (0-0.2); BASOPHILS % (AUTO) 0.9 % (0-1); EOSINOPHILS # (AUTO) 0.2 X10'3 (0-0.9); EOSINOPHILS % (AUTO) 1.9 % (0-6); HEMATOCRIT 29.4 % (35.0-45.0); LYMPHOCYTES # (AUTO) 0.7 X10'3 (1.1-4.8); LYMPHOCYTES % (AUTO) 8.1 % (21-51); MEAN CORPUSCULAR HEMOGLOBIN 29.3 PG (27.0-31.0); MEAN CORPUSCULAR HGB CONC 33.9 g/dL (33.0-36.5); MEAN CORPUSCULAR VOLUME 86.4 FL (78-98); MONOCYTES # (AUTO) 0.8 X10'3 (0-0.9); MONOCYTES % (AUTO) 9.3 % (2-12); NEUTROPHILS # (AUTO) 6.9 X10'3 (1.8-7.7); NEUTROPHILS % (AUTO) 79.8 % (42-75); PLATELET COUNT 152 X10'3 (140-440); RED CELL DISTRIBUTION WIDTH 15.3 % (11.5-14.5); WHITE BLOOD COUNT 8.6 X10'3 (4.5-11.0)
--- NOTE | 2019-05-11 06:55 | NUR ---
Problems reprioritized. Patient report given, questions answered & plan of care reviewed with STARLA Vogel.
[2019-05-11 07:01] LABS: ALBUMIN 2.8 G/DL (3.4-5.0); ANION GAP 7 (8-16); BLOOD UREA NITROGEN 16 MG/DL (7-18); CALCIUM 8.5 MG/DL (8.5-10.1); CHLORIDE 107 MMOL/L (99-107); GLUCOSE 93 MG/DL (70-104); MAGNESIUM 2.2 MG/DL (1.5-2.4); POTASSIUM 4.5 MMOL/L (3.5-5.1); SODIUM 140 MMOL/L (135-145); TOTAL CARBON DIOXIDE 25.8 MMOL/L (24-32); eGFR 70 ML/MIN
[2019-05-11] MEDS ORDERED: DOCU100C40 PO (07:31)
[2019-05-11] MEDS ORDERED: METO25TA6 PO (07:31)
--- NOTE | 2019-05-11 10:02 | NUR ---
DISCHARGE MEDICATION CALLED INTO [facility] IN [place], [place]
--- NOTE | 2019-05-11 11:20 | NUR ---
pt. discharged from facility at 1110. pt. was wheeled down to private vehicle by staff and accompanied by family. discharge paperwork was explained, understood and signed. new meds were called into [facility]. IV was d/c intact. pt. left with all belongings.
== END 2019-05-11 11:10 | disposition home health service (06) | DRG 219 ==
LOC: PAS IN 05:16 → EDSTATUS 07:30 → ICU 2S 11:52 → MED 3N 05-10 12:06
PROVIDERS: ADMIT Thoracic Surgery (Cardiothoracic Vascular Surgery); ATTEND Thoracic Surgery (Cardiothoracic Vascular Surgery)
PROC: 02RF08Z Replacement of Aortic Valve with Zooplastic Tissue, Open Approach (ICD-10-PCS; 2019-05-07)
PROC: 021209W Bypass Coronary Artery, Three Arteries from Aorta with Autologous Venous Tissue, Open Approach (ICD-10-PCS; 2019-05-07)
PROC: 06BP4ZZ Excision of Right Saphenous Vein, Percutaneous Endoscopic Approach (ICD-10-PCS; 2019-05-07)
PROC: 5A1221Z Performance of Cardiac Output, Continuous (ICD-10-PCS; 2019-05-07)
PROC: B24BZZ4 Ultrasonography of Heart with Aorta, Transesophageal (ICD-10-PCS; 2019-05-07)
PROC: 02HV33Z Insertion of Infusion Device into Superior Vena Cava, Percutaneous Approach (ICD-10-PCS; 2019-05-07)
PROC: 4A133B3 Monitoring of Arterial Pressure, Pulmonary, Percutaneous Approach (ICD-10-PCS; 2019-05-07)
PROC: 02HP32Z Insertion of Monitoring Device into Pulmonary Trunk, Percutaneous Approach (ICD-10-PCS; 2019-05-07)
PROC: 02100Z9 Bypass Coronary Artery, One Artery from Left Internal Mammary, Open Approach (ICD-10-PCS; principal; 2019-05-07 07:01)
DX: I25.10 Atherosclerotic heart disease of native coronary artery without angina pectoris (principal); I50.33 Acute on chronic diastolic (congestive) heart failure; I35.0 Nonrheumatic aortic (valve) stenosis; I48.0 Paroxysmal atrial fibrillation; E78.5 Hyperlipidemia, unspecified; I11.0 Hypertensive heart disease with heart failure; J44.9 Chronic obstructive pulmonary disease, unspecified; M19.90 Unspecified osteoarthritis, unspecified site; R29.6 Repeated falls; Z82.49 Family history of ischemic heart disease and other diseases of the circulatory system; Z86.73 Personal history of transient ischemic attack (TIA), and cerebral infarction without residual deficits; Z88.0 Allergy status to penicillin; Z87.891 Personal history of nicotine dependence; Z79.82 Long term (current) use of aspirin; Z80.9 Family history of malignant neoplasm, unspecified; Z83.79 Family history of other diseases of the digestive system; Z98.891 History of uterine scar from previous surgery; Z79.899 Other long term (current) drug therapy
CPT/HCPCS: 0232T; 93312; 93325; 36415; 36600; 71045; 74018; 80048; 80053; 81003; 82330; 82435; 82800; 82803; 82947; 82948; 83036; 83735; 84100; 84132; 84295; 85018; 85025; 85347; 85384; 85576; 85610; 85730; 86885; 86900; 86901; 86920; 87081; 88300; 93005; 93880; 93970; 94002; 94010; 94667; 94668; 94760; 97110; 97116; 97161; 97530; A4618; A6258; A6402; A6449; A7000; A7048; C1713; C1751; C9113; G0378; J0131; J0690; J1265; J1644; J1815; J1940; J2060; J2150; J2250; J2370; J2440; J2704; J2720; J2795; J2930; J3370; J3475; J3480; J3490; J7030; J7040; J7050; J7120; P9045; P9047

== ENCOUNTER 2021-05-19 20:50 | Inpatient (IN) | payer MEDICARE, OTHER ==
[~2021-05-19] VITALS: Ht 157.5 cm; Wt 70.5 kg
[~2021-05-19 20:50] MED LIST changes: -AMLO10TA PO; +DOCU100C40 PO; +LOP25T PO; -METO25TA6 PO; -ROPIVAcaine 0.5% (5mg/ml) 30ml vial ONE; -ringers solution, lacted 1,000 ML IV SCH
[2021-05-19 21:46] LABS: BASOPHILS % (AUTO) 1.1 % (0-1); EOSINOPHILS % (AUTO) 0.1 % (0-6); HEMATOCRIT 40.6 % (35.0-45.0); HEMOGLOBIN 13.8 g/dl (12.0-16.0); LYMPHOCYTES # (AUTO) 0.5 X10'3 (1.1-4.8); LYMPHOCYTES % (AUTO) 24.8 % (21-51); MEAN CORPUSCULAR HEMOGLOBIN 29.1 PG (27.0-31.0); MEAN CORPUSCULAR HGB CONC 33.9 g/dL (33.0-36.5); MEAN CORPUSCULAR VOLUME 85.9 FL (78-98); MEAN PLATELET VOLUME 8.6 FL (7.4-10.4); MONOCYTES # (AUTO) 0.2 X10'3 (0-0.9); MONOCYTES % (AUTO) 10.1 % (2-12); NEUTROPHILS # (AUTO) 1.3 X10'3 (1.8-7.7); NEUTROPHILS % (AUTO) 63.9 % (42-75); PLATELET COUNT 174 X10'3 (140-440); RED BLOOD COUNT 4.73 X10'6 (4.20-5.60)
[2021-05-19 21:57] LABS: ALANINE AMINOTRANSFERASE 31 U/L (12-78); ALBUMIN 3.3 G/DL (3.4-5.0); ALBUMIN/GLOBULIN RATIO 0.8 (1.1-1.5); ALKALINE PHOSPHATASE 50 IU/L (46-116); ANION GAP 12 (8-16); ASPARTATE AMINO TRANSFERASE 40 U/L (10-37); BILIRUBIN,TOTAL 0.3 MG/DL (0.1-1.0); BLOOD UREA NITROGEN 23 MG/DL (7-18); BUN/CREATININE RATIO 16.9 (6.6-38.0); CALCIUM 8.6 MG/DL (8.5-10.1); CHLORIDE 100 MMOL/L (99-107); CREATININE 1.36 MG/DL (0.40-0.90); GLUCOSE 128 MG/DL (70-104); SODIUM 137 MMOL/L (135-145); TOTAL CARBON DIOXIDE 24.9 MMOL/L (24-32); TOTAL PROTEIN 7.3 G/DL (6.4-8.2); eGFR 38 ML/MIN
[2021-05-19] MEDS ORDERED: dexamethasone sod phosphate 10mg/ml inj IV STA (22:31)
[2021-05-19 23:02] LABS: PLATELET ESTIMATE NORMAL; TOTAL CELLS COUNTED 100
[2021-05-19] MEDS ORDERED: magnesium 4gm in 100ml NS 100 ML IV PRN (23:55)
[2021-05-19] MEDS: enoxaparin 40mg/0.4ml syringe SUBCUT SCH (23:55)
[2021-05-19] MEDS ORDERED: acetaminophen 325mg tablet PO PRN (23:55)
[2021-05-19] MEDS ORDERED: potassium Cl 40MEQ/1/2NS 520ml 520 ML IV PRN ×2 (23:55)
[2021-05-19] MEDS ORDERED: magnesium 2GM in 50ml NS 50 ML IV PRN (23:55)
[2021-05-19] MEDS ORDERED: ondansetron/PF 4mg/2ml inj IV PRN (23:55)
[2021-05-19] MEDS: normal saline 1000ml 1,000 ML IV SCH (23:55)
[2021-05-19] MEDS ORDERED: magnesium Cl slow-release 64mg tablet PO PRN (23:55)
[2021-05-19] MEDS ORDERED: potassium Cl 20 mEq SR tablet PO PRN ×2 (23:55)
[2021-05-20] MEDS ORDERED: NORMAL SALINE IV ONE (00:45)
[2021-05-20] MEDS ORDERED: REMDESIVIR IV ONE (00:45)
[2021-05-20] MEDS ORDERED: REMDESIVIR INJ 200 MG in normal saline 100ml IV soln 60 ML IV ONE (00:52)
[2021-05-20 04:28] LABS: BASOPHILS % (AUTO) 0.8 % (0-1); EOSINOPHILS % (AUTO) 0.2 % (0-6); HEMATOCRIT 43.5 % (35.0-45.0); HEMOGLOBIN 14.3 g/dl (12.0-16.0); LYMPHOCYTES # (AUTO) 0.5 X10'3 (1.1-4.8); LYMPHOCYTES % (AUTO) 20.5 % (21-51); MEAN CORPUSCULAR HGB CONC 32.8 g/dL (33.0-36.5); MEAN CORPUSCULAR VOLUME 88.4 FL (78-98); MEAN PLATELET VOLUME 8.7 FL (7.4-10.4); MONOCYTES # (AUTO) 0.2 X10'3 (0-0.9); MONOCYTES % (AUTO) 6.9 % (2-12); NEUTROPHILS # (AUTO) 1.7 X10'3 (1.8-7.7); NEUTROPHILS % (AUTO) 71.6 % (42-75); PLATELET COUNT 139 X10'3 (140-440); RED BLOOD COUNT 4.92 X10'6 (4.20-5.60); RED CELL DISTRIBUTION WIDTH 14.4 % (11.5-14.5); WHITE BLOOD COUNT 2.4 X10'3 (4.5-11.0)
[2021-05-20 04:32] LABS: ALBUMIN 3.1 G/DL (3.4-5.0); ANION GAP 12 (8-16); BLOOD UREA NITROGEN 29 MG/DL (7-18); BUN/CREATININE RATIO 23.6 (6.6-38.0); CALCIUM 8.5 MG/DL (8.5-10.1); CHLORIDE 102 MMOL/L (99-107); CREATININE 1.23 MG/DL (0.40-0.90); GLUCOSE 137 MG/DL (70-104); MAGNESIUM 2.4 MG/DL (1.5-2.4); POTASSIUM 4.2 MMOL/L (3.5-5.1); SODIUM 137 MMOL/L (135-145); TOTAL CARBON DIOXIDE 22.9 MMOL/L (24-32); eGFR 42 ML/MIN
[2021-05-20] MEDS: docusate sod 100mg capsule PO SCH ×2 (08:00→20:16)
[2021-05-20] MEDS: K and/or MAG REPLACEMENT MC SCH ×2 (08:00→20:00)
[2021-05-20] MEDS: enoxaparin 40mg/0.4ml syringe SUBCUT SCH (09:27)
[2021-05-20 09:56] LABS: D-DIMER 2.44 MG/L FEU (0-0.50)
[2021-05-20 09:57] LABS: C-REACTIVE PROTEIN 2.49 MG/DL (0.0-0.5)
[2021-05-20] MEDS ORDERED: AMLO-708 PO (13:09)
[2021-05-20] MEDS ORDERED: METO-395 PO (13:09)
[2021-05-20 15:07] LABS: CLARITY,URINE CLEAR (Clear); COLOR,URINE YELLOW (Yellow); UA COLLECTION TYPE STRAIGHT CATH
[2021-05-20 15:08] LABS: GLUCOSE, URINE NEGATIVE (Neg); KETONES,URINE NEGATIVE (Neg); LEUKOCYTE ESTERASE ,URINE NEGATIVE (Neg); NITRITES, URINE NEGATIVE (Neg); OCCULT BLOOD,URINE NEGATIVE (Neg); PROTEIN,URINE 30 mg/dl (Neg); UROBILINOGEN,URINE 0.2 E.U/dL (0.2-1.0)
[2021-05-20 15:09] LABS: WBC,URINE 0-4 /HPF (0-4)
[2021-05-20 15:10] LABS: BACTERIA,URINE NONE SEEN /HPF (Neg); COARSE GRANULAR CAST 0-3 /LPF (NEGATIVE); HYALINE CASTS 0-3 /LPF (NEGATIVE); MUCUS STRANDS NONE SEEN /LPF (Neg); RBC,URINE NONE SEEN /HPF (0-2); SQUAMOUS EPITHELIAL CELL,UR FEW /LPF (FEW)
--- NOTE | 2021-05-20 15:57 | NUR ---
RECEIVED REPORT FROM ED. PT GOING TO ROOM 1428E
[2021-05-20 16:10] VITALS: BP 129/57
--- NOTE | 2021-05-20 16:28 | NUR ---
PT ARRIVED TO ROOM 4021B AT 1610
[2021-05-20 18:00] VITALS: BP 123/65
--- NOTE | 2021-05-20 18:20 | NUR ---
Problems reprioritized. Patient report given, questions answered & plan of care reviewed with STARLA TAO.
[2021-05-20 22:00] VITALS: BP 139/67
[2021-05-20] MEDS: REMDESIVIR 100 MG in NS 100ml IVPB IV SCH (22:13)
[2021-05-21] MEDS: DEXAMETHASONE 6 MG TABLET PO SCH ×3 (00:43→19:18)
[2021-05-21 01:38] VITALS: BP 118/64
[2021-05-21] MEDS: K and/or MAG REPLACEMENT MC SCH ×2 (06:31→19:18)
[2021-05-21 07:28] LABS: BASOPHILS % (AUTO) 0.2 % (0-1); EOSINOPHILS % (AUTO) 0 % (0-6); HEMATOCRIT 42.4 % (35.0-45.0); LYMPHOCYTES # (AUTO) 0.5 X10'3 (1.1-4.8); LYMPHOCYTES % (AUTO) 11.3 % (21-51); MEAN CORPUSCULAR HEMOGLOBIN 28.8 PG (27.0-31.0); MEAN CORPUSCULAR HGB CONC 32.9 g/dL (33.0-36.5); MEAN CORPUSCULAR VOLUME 87.4 FL (78-98); MEAN PLATELET VOLUME 9.7 FL (7.4-10.4); MONOCYTES # (AUTO) 0.3 X10'3 (0-0.9); MONOCYTES % (AUTO) 6.8 % (2-12); NEUTROPHILS # (AUTO) 3.3 X10'3 (1.8-7.7); NEUTROPHILS % (AUTO) 81.7 % (42-75); PLATELET COUNT 181 X10'3 (140-440); RED BLOOD COUNT 4.86 X10'6 (4.20-5.60); RED CELL DISTRIBUTION WIDTH 14.1 % (11.5-14.5); WHITE BLOOD COUNT 4.1 X10'3 (4.5-11.0)
[2021-05-21 08:00] LABS: D-DIMER 3.05 MG/L FEU (0-0.50)
[2021-05-21 08:13] LABS: ALANINE AMINOTRANSFERASE 33 U/L (12-78); ALBUMIN/GLOBULIN RATIO 0.8 (1.1-1.5); ALKALINE PHOSPHATASE 49 IU/L (46-116); ANION GAP 10 (8-16); ASPARTATE AMINO TRANSFERASE 47 U/L (10-37); BILIRUBIN,TOTAL 0.3 MG/DL (0.1-1.0); BLOOD UREA NITROGEN 29 MG/DL (7-18); BUN/CREATININE RATIO 30.2 (6.6-38.0); C-REACTIVE PROTEIN 1.48 MG/DL (0.0-0.5); CALCIUM 8.3 MG/DL (8.5-10.1); CHLORIDE 105 MMOL/L (99-107); CREATININE 0.96 MG/DL (0.40-0.90); GLUCOSE 121 MG/DL (70-104); LACTATE DEHYDROGENASE 817 U/L (81-234); MAGNESIUM 2.1 MG/DL (1.5-2.4); PHOSPHORUS 2.8 MG/DL (2.3-4.5); POTASSIUM 4.1 MMOL/L (3.5-5.1); SODIUM 138 MMOL/L (135-145); TOTAL CARBON DIOXIDE 23.2 MMOL/L (24-32); TOTAL PROTEIN 6.8 G/DL (6.4-8.2); eGFR 56 ML/MIN
[2021-05-21] MEDS: docusate sod 100mg capsule PO SCH ×2 (08:54→19:17)
[2021-05-21] MEDS: enoxaparin 40mg/0.4ml syringe SUBCUT SCH (08:55)
[2021-05-21 10:03] VITALS: BP 148/68
--- NOTE | 2021-05-21 12:04 | NUR ---
Malnutrition consult: Pt admitted w/ increasing fatigue and decreased appetite for about 4 days per EMR. Pt also w/ Covid and hx of dementia. Current documented wt not scaled though consistent w/ scaled wt from 2019 which showed 67.8kg. Pt appears well developed and well nourished per ED note. Pt able to eat ~60% of 1 meal on Heart healthy diet though mostly consumed only the milk of three other meals. No edema noted. At this time, pt does not meet minimum criteria for malnutrition. Pt may benefit from Ensure Enlive TID as pt seems to only consume milk w/ meals. Will continue to monitor. Addendum: 05/21/21 at [address] Amended: Links added.
[2021-05-21 15:28] VITALS: BP 126/70
[2021-05-21] MEDS ORDERED: iohexol 350MG/ML 100ml bottle IV ONE (16:31)
[2021-05-21 18:00] VITALS: BP 135/69
[2021-05-21] MEDS: lactose-reduced food (Ensure Enlive) - 237ml bottle PO SCH (18:00)
--- NOTE | 2021-05-21 18:37 | NUR ---
Patient in room ORTHO 4021. I have received report from Janki CHA and had the opportunity to ask questions and assume patient care.
[2021-05-21] MEDS: REMDESIVIR 100 MG in NS 100ml IVPB IV SCH (19:17)
[2021-05-21] MEDS ORDERED: atorvastatin 10mg tablet PO SCH (21:00)
[2021-05-21 22:00] VITALS: BP 127/56
[2021-05-21] MEDS: normal saline 1000ml 1,000 ML IV SCH (23:55)
[2021-05-22 02:00] VITALS: BP 119/71
[2021-05-22 06:00] VITALS: BP 134/61
--- NOTE | 2021-05-22 06:41 | NUR ---
Problems reprioritized. Patient report given, questions answered & plan of care reviewed with Jeanne CHA.
--- NOTE | 2021-05-22 07:04 | NUR ---
Patient in room ORTHO 4021. I have received report from Carina CHA and had the opportunity to ask questions and assume patient care.
[2021-05-22] MEDS ORDERED: amLODIPine 5mg tablet PO SCH (08:00)
[2021-05-22] MEDS ORDERED: aspirin 81mg, enteric-coated 1 TAB TABLET.DR PO SCH (08:00)
[2021-05-22] MEDS: K and/or MAG REPLACEMENT MC SCH (08:00)
[2021-05-22] MEDS: lactose-reduced food (Ensure Enlive) - 237ml bottle PO SCH ×2 (08:00→13:00)
[2021-05-22] MEDS ORDERED: calcium carbonate/vitamin D3 tablet PO SCH (08:00)
[2021-05-22] MEDS ORDERED: clopidogrel 75mg tablet PO SCH (08:00)
[2021-05-22] MEDS ORDERED: metoprolol succinate 25mg (24-HOUR) SR. Tablet PO SCH (08:00)
[2021-05-22] MEDS ORDERED: ASPI-611 PO (09:29)
[2021-05-22] MEDS ORDERED: BENZ-16 PO (09:29)
[2021-05-22] MEDS ORDERED: PRED10TA23 PO (09:29)
[2021-05-22] MEDS ORDERED: ALBU8.5H17 INH (09:29)
[2021-05-22 09:33] LABS: BASOPHILS % (AUTO) 0.3 % (0-1); EOSINOPHILS % (AUTO) 0 % (0-6); HEMATOCRIT 43.2 % (35.0-45.0); HEMOGLOBIN 14.5 g/dl (12.0-16.0); LYMPHOCYTES # (AUTO) 0.4 X10'3 (1.1-4.8); LYMPHOCYTES % (AUTO) 15.5 % (21-51); MEAN CORPUSCULAR HEMOGLOBIN 28.7 PG (27.0-31.0); MEAN CORPUSCULAR HGB CONC 33.7 g/dL (33.0-36.5); MEAN CORPUSCULAR VOLUME 85.3 FL (78-98); MEAN PLATELET VOLUME 9.2 FL (7.4-10.4); MONOCYTES # (AUTO) 0.2 X10'3 (0-0.9); NEUTROPHILS % (AUTO) 76.2 % (42-75); PLATELET COUNT 201 X10'3 (140-440); RED BLOOD COUNT 5.06 X10'6 (4.20-5.60); RED CELL DISTRIBUTION WIDTH 14.3 % (11.5-14.5); WHITE BLOOD COUNT 2.7 X10'3 (4.5-11.0)
[2021-05-22 09:38] LABS: D-DIMER 2.07 MG/L FEU (0-0.50)
[2021-05-22 09:48] LABS: ALANINE AMINOTRANSFERASE 36 U/L (12-78); ALBUMIN 2.9 G/DL (3.4-5.0); ALBUMIN/GLOBULIN RATIO 0.8 (1.1-1.5); ALKALINE PHOSPHATASE 48 IU/L (46-116); ANION GAP 12 (8-16); ASPARTATE AMINO TRANSFERASE 44 U/L (10-37); BILIRUBIN,TOTAL 0.3 MG/DL (0.1-1.0); BLOOD UREA NITROGEN 30 MG/DL (7-18); BUN/CREATININE RATIO 34.5 (6.6-38.0); C-REACTIVE PROTEIN 0.69 MG/DL (0.0-0.5); CALCIUM 8.5 MG/DL (8.5-10.1); CHLORIDE 107 MMOL/L (99-107); CREATININE 0.87 MG/DL (0.40-0.90); GLUCOSE 141 MG/DL (70-104); LACTATE DEHYDROGENASE 267 U/L (81-234); MAGNESIUM 2.3 MG/DL (1.5-2.4); PHOSPHORUS 3.1 MG/DL (2.3-4.5); POTASSIUM 4.1 MMOL/L (3.5-5.1); SODIUM 144 MMOL/L (135-145); TOTAL CARBON DIOXIDE 24.8 MMOL/L (24-32); TOTAL PROTEIN 6.7 G/DL (6.4-8.2); eGFR 63 ML/MIN
[2021-05-22 10:00] VITALS: BP 119/86
[2021-05-22 10:02] LABS: BURR CELLS FEW; PLATELET ESTIMATE NORMAL; TOTAL CELLS COUNTED 100
[2021-05-22] MEDS: docusate sod 100mg capsule PO SCH (10:18)
[2021-05-22] MEDS: DEXAMETHASONE 6 MG TABLET PO SCH (10:18)
[2021-05-22] MEDS: enoxaparin 40mg/0.4ml syringe SUBCUT SCH (10:18)
[2021-05-22 14:00] VITALS: BP 100/51
--- NOTE | 2021-05-22 15:31 | NUR ---
Had received phone call from NELDA Pabon pt requires O2 Sat qualification assessment prior to discharge.
--- NOTE | 2021-05-22 15:32 | NUR ---
O2 Sat at rest on room air:_99% If below 89%: Recovery O2 Sat at rest on ___LPM:___%:___% via (mask/nasal cannula, etc..) No further documentation is necessary. If O2 Sat did not drop below 89% on room air,ambulate patient on room air. O2 Sat while ambulating on room air: 97% Recovery O2 Sat while ambulating on ___LPM:___% No further documentation is necessary. If patient does not drop below 89% while ambulating, he/she does not qualify for home O2.
--- NOTE | 2021-05-22 15:42 | NUR ---
This RN phoned pt's son Jose this a.m., and just now to notify of pt's discharge. No answer, unable to leave message in a.m.. Message left now. whipped topping mixer notified. Will continue to monitor.
== END 2021-05-22 17:33 | disposition home health service (06) | DRG 177 ==
LOC: ER 20:51 → ED HOLD 23:57 → ORTHO 4S 05-20 16:15
PROVIDERS: ADMIT Internal Medicine; ATTEND Family Medicine
PROC: XW033E5 Introduction of Remdesivir Anti-infective into Peripheral Vein, Percutaneous Approach, New Technology Group 5 (ICD-10-PCS; principal; 2021-05-20)
PROC: B32T1ZZ Computerized Tomography (CT Scan) of Left Pulmonary Artery using Low Osmolar Contrast (ICD-10-PCS; 2021-05-21)
PROC: B3201ZZ Computerized Tomography (CT Scan) of Thoracic Aorta using Low Osmolar Contrast (ICD-10-PCS; 2021-05-21)
PROC: B32S1ZZ Computerized Tomography (CT Scan) of Right Pulmonary Artery using Low Osmolar Contrast (ICD-10-PCS; 2021-05-21)
DX: U07.1 COVID-19 (principal); N17.0 Acute kidney failure with tubular necrosis; J96.01 Acute respiratory failure with hypoxia; E78.5 Hyperlipidemia, unspecified; F03.90 Unspecified dementia, unspecified severity, without behavioral disturbance, psychotic disturbance, mood disturbance, and anxiety; I10 Essential (primary) hypertension; I25.10 Atherosclerotic heart disease of native coronary artery without angina pectoris; Z88.0 Allergy status to penicillin; Z79.899 Other long term (current) drug therapy; Z79.82 Long term (current) use of aspirin
CPT/HCPCS: 36415; 71045; 71275; 80048; 80053; 81001; 83605; 83615; 83735; 84100; 84145; 85007; 85025; 85379; 86140; 87040; 87081; 87635; 96372; 96374; 99285; C9803; G0378; J1100; J1650; J7030; J8540; Q9967

== ENCOUNTER 2021-06-11 09:34 | Emergency (ER) | payer MEDICARE, OTHER ==
[~2021-06-11] VITALS: Ht 160 cm; Wt 60.0 kg
[~2021-06-11 09:34] MED LIST changes: +ALBU8.5H17 INH; +AMLO-708 PO; +BENZ-16 PO; -DOCU100C40 PO; -LOP25T PO; +METO-395 PO; +PRED10TA23 PO
[2021-06-11 09:53] LABS: EOSINOPHILS # (AUTO) 0.3 X10'3 (0-0.9)
[2021-06-11 09:54] LABS: BASOPHILS % (AUTO) 1.1 % (0-1); EOSINOPHILS % (AUTO) 7.2 % (0-6); HEMATOCRIT 38.8 % (35.0-45.0); LYMPHOCYTES # (AUTO) 0.6 X10'3 (1.1-4.8); LYMPHOCYTES % (AUTO) 13.5 % (21-51); MEAN CORPUSCULAR HEMOGLOBIN 28.7 PG (27.0-31.0); MEAN CORPUSCULAR HGB CONC 33.4 g/dL (33.0-36.5); MEAN CORPUSCULAR VOLUME 86.1 FL (78-98); MEAN PLATELET VOLUME 8.5 FL (7.4-10.4); MONOCYTES # (AUTO) 0.3 X10'3 (0-0.9); MONOCYTES % (AUTO) 7.5 % (2-12); NEUTROPHILS # (AUTO) 3.1 X10'3 (1.8-7.7); NEUTROPHILS % (AUTO) 70.7 % (42-75); PLATELET COUNT 149 X10'3 (140-440); RED BLOOD COUNT 4.51 X10'6 (4.20-5.60); RED CELL DISTRIBUTION WIDTH 14.9 % (11.5-14.5); WHITE BLOOD COUNT 4.4 X10'3 (4.5-11.0)
[2021-06-11 10:13] LABS: ALANINE AMINOTRANSFERASE 40 U/L (12-78); ALBUMIN 2.8 G/DL (3.4-5.0); ALBUMIN/GLOBULIN RATIO 0.7 (1.1-1.5); ALKALINE PHOSPHATASE 56 IU/L (46-116); ANION GAP 8 (8-16); ASPARTATE AMINO TRANSFERASE 28 U/L (10-37); BILIRUBIN,TOTAL 0.4 MG/DL (0.1-1.0); BLOOD UREA NITROGEN 21 MG/DL (7-18); BUN/CREATININE RATIO 16.5 (6.6-38.0); CHLORIDE 107 MMOL/L (99-107); CREATININE 1.27 MG/DL (0.40-0.90); GLUCOSE 113 MG/DL (70-104); POTASSIUM 3.9 MMOL/L (3.5-5.1); SODIUM 143 MMOL/L (135-145); TOTAL CARBON DIOXIDE 28.1 MMOL/L (24-32); TOTAL PROTEIN 6.8 G/DL (6.4-8.2); eGFR 41 ML/MIN
[2021-06-11 11:34] VITALS: BP 105/63
== END 2021-06-11 11:35 | disposition home or self-care (01) ==
LOC: ER 09:34
DX: R07.89 Other chest pain (principal); I25.10 Atherosclerotic heart disease of native coronary artery without angina pectoris; E78.00 Pure hypercholesterolemia, unspecified; I10 Essential (primary) hypertension; Z98.890 Other specified postprocedural states; Z88.0 Allergy status to penicillin; Z79.82 Long term (current) use of aspirin; Z79.899 Other long term (current) drug therapy
CPT/HCPCS: 36415; 71045; 80053; 83880; 84484; 85025; 93005; 99285

== ENCOUNTER 2022-08-22 15:29 | Emergency (ER) | payer MEDICARE, OTHER ==
[~2022-08-22] VITALS: Ht 157.5 cm; Wt 65.9 kg
[~2022-08-22 15:29] MED LIST changes: -PRED10TA23 PO
[2022-08-22 15:38] VITALS: BP 157/71
[2022-08-22 16:11] LABS: BASOPHILS # (AUTO) 0.1 X10'3 (0-0.2); BASOPHILS % (AUTO) 1.2 % (0-1); EOSINOPHILS # (AUTO) 0.5 X10'3 (0-0.9); EOSINOPHILS % (AUTO) 5.1 % (0-6); HEMATOCRIT 28.7 % (35.0-45.0); HEMOGLOBIN 9.6 g/dl (12.0-16.0); LYMPHOCYTES # (AUTO) 1.1 X10'3 (1.1-4.8); LYMPHOCYTES % (AUTO) 12.2 % (21-51); MEAN CORPUSCULAR HEMOGLOBIN 26.1 PG (27.0-31.0); MEAN CORPUSCULAR HGB CONC 33.6 g/dL (33.0-36.5); MEAN CORPUSCULAR VOLUME 77.6 FL (78-98); MEAN PLATELET VOLUME 7.9 FL (7.4-10.4); MONOCYTES # (AUTO) 0.6 X10'3 (0-0.9); MONOCYTES % (AUTO) 6.5 % (2-12); NEUTROPHILS # (AUTO) 6.9 X10'3 (1.8-7.7); PLATELET COUNT 419 X10'3 (140-440); RED CELL DISTRIBUTION WIDTH 17.2 % (11.5-14.5); WHITE BLOOD COUNT 9.2 X10'3 (4.5-11.0)
[2022-08-22 16:25] LABS: ALANINE AMINOTRANSFERASE 20 U/L (12-78); ALBUMIN 3.4 G/DL (3.4-5.0); ALBUMIN/GLOBULIN RATIO 0.9 (1.1-1.5); ALKALINE PHOSPHATASE 72 IU/L (46-116); ANION GAP 8 (8-16); ASPARTATE AMINO TRANSFERASE 22 U/L (10-37); BILIRUBIN,TOTAL 0.2 MG/DL (0.1-1.0); BLOOD UREA NITROGEN 29 MG/DL (7-18); BUN/CREATININE RATIO 27.4 (6.6-38.0); CALCIUM 9.6 MG/DL (8.5-10.1); CHLORIDE 103 MMOL/L (99-107); CREATININE 1.06 MG/DL (0.40-0.90); GLUCOSE 114 MG/DL (70-104); LIPASE 125 U/L (73-393); POTASSIUM 3.7 MMOL/L (3.5-5.1); SODIUM 139 MMOL/L (135-145); TOTAL CARBON DIOXIDE 27.7 MMOL/L (24-32); TOTAL PROTEIN 7.3 G/DL (6.4-8.2); eGFR 50 ML/MIN
--- NOTE | 2022-08-22 17:03 | NUR ---
Forrest Garcia called for update. [phone].
[2022-08-22] MEDS ORDERED: normal saline 1000ml 1,000 ML IV ONE (17:10)
[2022-08-22] MEDS ORDERED: ondansetron/PF 4mg/2ml inj IV ONE (17:10)
[2022-08-22 17:39] LABS: CLARITY,URINE CLEAR (Clear); COLOR,URINE YELLOW (Yellow); GLUCOSE, URINE NEGATIVE (Neg); KETONES,URINE NEGATIVE (Neg); LEUKOCYTE ESTERASE ,URINE NEGATIVE (Neg); NITRITES, URINE NEGATIVE (Neg); OCCULT BLOOD,URINE TRACE-INTACT (Neg); PH,URINE 5.5 (4.8-8.0); PROTEIN,URINE NEGATIVE (Neg); UROBILINOGEN,URINE 0.2 E.U/dL (0.2-1.0)
[2022-08-22 17:41] LABS: UA COLLECTION TYPE STRAIGHT CATH
[2022-08-22 17:47] LABS: BACTERIA,URINE FEW /HPF (Neg); CELLULAR CAST 0-4 /LPF (NEGATIVE); MUCUS STRANDS MODERATE /LPF (Neg)
[2022-08-22 17:48] LABS: SQUAMOUS EPITHELIAL CELL,UR FEW /LPF (FEW)
[2022-08-22 17:49] LABS: RENAL CELLS, URINE FEW /HPF; TRANSITIONAL EPI CELLS,URINE FEW /HPF
[2022-08-22] MEDS ORDERED: morphine 4 MG/ML inj SYRINge IV ONE (17:55)
[2022-08-22] MEDS ORDERED: PANT-47 PO (18:27)
[2022-08-22] MEDS ORDERED: CEPH250T PO (18:27)
[2022-08-22] MEDS ORDERED: ONDA4TAB12 PO (18:32)
--- NOTE | 2022-08-22 18:55 | NUR ---
IV DC'D PT BEING DISCHARGED DRESSING APPLIED
== END 2022-08-22 18:57 | disposition home or self-care (01) ==
LOC: ER 15:29
DX: R10.13 Epigastric pain (principal); R11.0 Nausea; I25.10 Atherosclerotic heart disease of native coronary artery without angina pectoris; E78.00 Pure hypercholesterolemia, unspecified; I10 Essential (primary) hypertension; Z86.73 Personal history of transient ischemic attack (TIA), and cerebral infarction without residual deficits; Z98.890 Other specified postprocedural states; Z88.0 Allergy status to penicillin; Z79.82 Long term (current) use of aspirin; Z79.2 Long term (current) use of antibiotics; Z79.899 Other long term (current) drug therapy
CPT/HCPCS: 36415; 74176; 80053; 81001; 83690; 85025; 87088; 93005; 96361; 96374; 96375; 99285; J2270; J2405; J7030

== ENCOUNTER 2023-01-16 23:55 | Emergency (ER) | payer MEDICARE, OTHER ==
[~2023-01-16] VITALS: Ht 157.5 cm; Wt 68.2 kg
[~2023-01-16 23:55] MED LIST changes: +CEPH250T PO; +ONDA4TAB12 PO; +PANT-47 PO
[2023-01-17 00:58] LABS: BASOPHILS # (AUTO) 0.1 X10'3 (0-0.2); BASOPHILS % (AUTO) 0.9 % (0-1); EOSINOPHILS # (AUTO) 0.3 X10'3 (0-0.9); EOSINOPHILS % (AUTO) 2.4 % (0-6); HEMATOCRIT 33.2 % (35.0-45.0); HEMOGLOBIN 10.5 g/dl (12.0-16.0); LYMPHOCYTES # (AUTO) 1.2 X10'3 (1.1-4.8); LYMPHOCYTES % (AUTO) 9.1 % (21-51); MEAN CORPUSCULAR HEMOGLOBIN 25.1 PG (27.0-31.0); MEAN CORPUSCULAR HGB CONC 31.5 g/dL (33.0-36.5); MEAN CORPUSCULAR VOLUME 79.7 FL (78-98); MEAN PLATELET VOLUME 8.2 FL (7.4-10.4); MONOCYTES # (AUTO) 0.7 X10'3 (0-0.9); MONOCYTES % (AUTO) 5.9 % (2-12); NEUTROPHILS # (AUTO) 10.3 X10'3 (1.8-7.7); NEUTROPHILS % (AUTO) 81.7 % (42-75); PLATELET COUNT 397 X10'3 (140-440); RED BLOOD COUNT 4.16 X10'6 (4.20-5.60); RED CELL DISTRIBUTION WIDTH 20.9 % (11.5-14.5); WHITE BLOOD COUNT 12.6 X10'3 (4.5-11.0)
[2023-01-17 01:09] LABS: ALANINE AMINOTRANSFERASE 44 U/L (12-78); ALBUMIN 3.6 G/DL (3.4-5.0); ALBUMIN/GLOBULIN RATIO 0.9 (1.1-1.5); ALKALINE PHOSPHATASE 94 IU/L (46-116); ANION GAP 12 (8-16); ASPARTATE AMINO TRANSFERASE 35 U/L (10-37); BILIRUBIN,TOTAL 0.3 MG/DL (0.1-1.0); BLOOD UREA NITROGEN 31 MG/DL (7-18); BUN/CREATININE RATIO 22.8 (10.0-20.0); CALCIUM 9.7 MG/DL (8.5-10.1); CHLORIDE 103 MMOL/L (99-107); CREATININE 1.36 MG/DL (0.40-0.90); GLUCOSE 103 MG/DL (70-104); LIPASE 87 U/L (73-393); POTASSIUM 3.8 MMOL/L (3.5-5.1); SODIUM 140 MMOL/L (135-145); TOTAL CARBON DIOXIDE 25.1 MMOL/L (24-32); TOTAL PROTEIN 7.5 G/DL (6.4-8.2); eGFR 37 ML/MIN
[2023-01-17] MEDS ORDERED: ondansetron/PF 4mg/2ml inj IV ONE (01:20)
[2023-01-17] MEDS ORDERED: normal saline 1000ML IV soln IVB ONE (01:20)
[2023-01-17] MEDS ORDERED: pantoprazole 40 MG vial IV ONE (01:20)
[2023-01-17 01:25] LABS: ANISOCYTOSIS 3+; MICROCYTOSIS 1+; PLATELET ESTIMATE NORMAL
[2023-01-17] MEDS ORDERED: pantoprazole 40MG/NS 100ML BAG 100 ML IV ONE (01:25)
[2023-01-17 01:26] LABS: ELLIPTOCYTES 1+; POIKILOCYTOSIS FEW
[2023-01-17] MEDS ORDERED: acetaminophen 325mg tablet PO ONE (01:35)
[2023-01-17 01:44] LABS: CLARITY,URINE CLEAR (Clear); COLOR,URINE YELLOW (Yellow); GLUCOSE, URINE NEGATIVE (Neg); KETONES,URINE NEGATIVE (Neg); LEUKOCYTE ESTERASE ,URINE NEGATIVE (Neg); NITRITES, URINE NEGATIVE (Neg); OCCULT BLOOD,URINE NEGATIVE (Neg); PROTEIN,URINE NEGATIVE (Neg); UROBILINOGEN,URINE 0.2 E.U/dL (0.2-1.0)
[2023-01-17 01:49] LABS: UA COLLECTION TYPE CLN CATCH MIDSTREAM
[2023-01-17] MEDS ORDERED: proCHLORperazine 10 MG/2 ml inj IV ONE (01:50)
[2023-01-17] MEDS ORDERED: PANT-47 PO (04:21)
[2023-01-17 04:30] VITALS: BP 115/56
== END 2023-01-17 04:50 | disposition home or self-care (01) ==
LOC: ER 23:55
DX: K29.00 Acute gastritis without bleeding (principal); R10.13 Epigastric pain; E78.00 Pure hypercholesterolemia, unspecified; I10 Essential (primary) hypertension; Z88.0 Allergy status to penicillin; Z90.49 Acquired absence of other specified parts of digestive tract
CPT/HCPCS: 36415; 74176; 80053; 81003; 83690; 85008; 85025; 93005; 96374; 96375; 99285; C9113; J0780; J7030

== ENCOUNTER 2023-12-06 08:04 | Emergency (ER) | payer MEDICARE, OTHER ==
[~2023-12-06] VITALS: Ht 160 cm; Wt 65.0 kg
[~2023-12-06 08:04] MED LIST changes: -ALBU8.5H17 INH; -ASPI-611 PO; -BENZ-16 PO; -CALC1TAB2 PO; -CEPH250T PO; +MEMA10TA22 PO; -METO-395 PO; -ONDA4TAB12 PO; +POTA20TA34 PO; +QUET50TA24 PO; +SERT-432 PO; +SUCR1TAB PO; +TRAM50TA2 PO
[2023-12-06] MEDS ORDERED: iohexol 300mg/ml 100ml inj. ONE (09:07)
[2023-12-06] MEDS: normal saline 1000ML IV soln IVB ONE (09:31)
[2023-12-06 09:58] LABS: BASOPHILS % (AUTO) 0.2 % (0-1); EOSINOPHILS % (AUTO) 0.2 % (0-6); HEMATOCRIT 41.7 % (35.0-45.0); HEMOGLOBIN 13.6 g/dl (12.0-16.0); LYMPHOCYTES # (AUTO) 0.6 X10'3 (1.1-4.8); LYMPHOCYTES % (AUTO) 5.5 % (21-51); MEAN CORPUSCULAR HEMOGLOBIN 29.5 PG (27.0-31.0); MEAN CORPUSCULAR HGB CONC 32.7 g/dL (33.0-36.5); MEAN CORPUSCULAR VOLUME 90.3 FL (78-98); MEAN PLATELET VOLUME 8.6 FL (7.4-10.4); MONOCYTES # (AUTO) 0.5 X10'3 (0-0.9); MONOCYTES % (AUTO) 4.4 % (2-12); NEUTROPHILS # (AUTO) 9.5 X10'3 (1.8-7.7); NEUTROPHILS % (AUTO) 89.7 % (42-75); PLATELET COUNT 221 X10'3 (140-440); RED BLOOD COUNT 4.62 X10'6 (4.20-5.60); RED CELL DISTRIBUTION WIDTH 14.9 % (11.5-14.5); WHITE BLOOD COUNT 10.6 X10'3 (4.5-11.0)
[2023-12-06 10:16] LABS: AMMONIA < 10 UMOL/L (11-32); LACTIC SEPSIS 1.5 MMOL/L (0.4-2.0)
[2023-12-06 10:25] LABS: ALBUMIN 3.9 G/DL (3.4-5.0); ANION GAP 10 (8-16); BLOOD UREA NITROGEN 28 MG/DL (7-18); BUN/CREATININE RATIO 28.6 (10.0-20.0); CALCIUM 9.4 MG/DL (8.5-10.1); CHLORIDE 106 MMOL/L (99-107); CREATININE 0.98 MG/DL (0.40-0.90); GLUCOSE 109 MG/DL (70-104); POTASSIUM 3.7 MMOL/L (3.5-5.1); SODIUM 142 MMOL/L (135-145); TOTAL CARBON DIOXIDE 26.4 MMOL/L (24-32); eCRCL 37 ML/MIN; eGFR 54 ML/MIN
[2023-12-06 10:26] LABS: CREATINE KINASE 1308 U/L (26-192)
[2023-12-06 10:37] LABS: ETHANOL < 10 MG/DL (<10)
[2023-12-06] MEDS: hydrALAZINE 20mg/ml inj. IV ONE (11:19)
[2023-12-06] MEDS: ringers solution, lacted 1,000 ML IV ONE (11:21)
[2023-12-06 11:47] LABS: BILIRUBIN,URINE NEGATIVE (Neg); CLARITY,URINE CLEAR (Clear); COLOR,URINE YELLOW (Yellow); GLUCOSE, URINE NEGATIVE (Neg); KETONES,URINE NEGATIVE (Neg); LEUKOCYTE ESTERASE ,URINE NEGATIVE (Neg); NITRITES, URINE NEGATIVE (Neg); OCCULT BLOOD,URINE TRACE-INTACT (Neg); PH,URINE 5.5 (4.8-8.0); PROTEIN,URINE NEGATIVE (Neg); URINE AMPHETAMINE SCREEN NEGATIVE (Neg); URINE BARBITUATE SCREEN NEGATIVE (Neg); URINE BENZODIAZEPINES SCREEN NEGATIVE (Neg); URINE CANNABINOID SCREEN NEGATIVE (Neg); URINE COCAINE SCREEN NEGATIVE (Neg); URINE METHADONE SCREEN NEGATIVE (Neg); URINE OPIATE SCREEN NEGATIVE (Neg); URINE PHENCYCLIDINE SCREEN NEGATIVE (Neg); UROBILINOGEN,URINE 0.2 E.U/dL (0.2-1.0)
[2023-12-06 11:57] LABS: UA COLLECTION TYPE OTHER
[2023-12-06 11:59] LABS: HYALINE CASTS 0-3 /LPF (NEGATIVE); MUCUS STRANDS FEW /LPF (Neg); SQUAMOUS EPITHELIAL CELL,UR FEW /LPF (FEW)
[2023-12-06 12:00] LABS: BACTERIA,URINE FEW /HPF (Neg); RBC,URINE 0-2 /HPF (0-2); WBC,URINE 0-4 /HPF (0-4)
[2023-12-06 13:09] VITALS: BP 150/89; PULSE 75; RESP 15; TEMP 98.5; O2SAT 95
== END 2023-12-06 13:28 | disposition home or self-care (01) ==
LOC: ER 08:05
DX: R29.6 Repeated falls (principal); I10 Essential (primary) hypertension; F03.90 Unspecified dementia, unspecified severity, without behavioral disturbance, psychotic disturbance, mood disturbance, and anxiety; Z88.0 Allergy status to penicillin; Z86.73 Personal history of transient ischemic attack (TIA), and cerebral infarction without residual deficits; I25.10 Atherosclerotic heart disease of native coronary artery without angina pectoris; E78.00 Pure hypercholesterolemia, unspecified; Z90.49 Acquired absence of other specified parts of digestive tract; Z95.1 Presence of aortocoronary bypass graft
CPT/HCPCS: 36415; 70450; 71045; 71260; 72125; 74177; 80048; 80305; 80320; 81001; 82140; 82550; 82948; 83605; 84484; 85025; 87040; 93005; 96361; 96374; 99285; J0360; J3490; J7030; J7120; Q9967